=== PATIENT | male | born 1940 | race Caucasian/White ===

== ENCOUNTER 2016-03-26 10:45 | Emergency (ER) | payer OTHER ==
[~2016-03-26] VITALS: Ht 177.8 cm; Wt 86.5 kg
[2016-03-26 13:08] VITALS: BP 138/89
== END 2016-03-26 13:09 | disposition home or self-care (01) ==
LOC: EME 10:45
DX: R31.9 Hematuria, unspecified (principal); E78.5 Hyperlipidemia, unspecified; Z95.1 Presence of aortocoronary bypass graft; Z98.890 Other specified postprocedural states
CPT/HCPCS: 99281; 99283